=== PATIENT | male | born 1990 | race Two or more races ===

== ENCOUNTER 2024-08-17 07:27 | Emergency (ER) | payer MEDICAID, SELFPAY ==
[2024-08-17 07:28] VITALS: BMI 32.7
[2024-08-17 07:39] VITALS: BP 142/93; PULSE 64; RESP 18; TEMP 37.1; O2SAT 99; BMI 32.8
--- NOTE | 2024-08-17 07:55 | EDNOTE_ITS ---
<Statement entered by Naheed Iverson MD - 08/17/24 17:53> As co-signing physician, I was present and available for consult prn. I concur with the plan and care as documented by the midlevel provider. ED Back Injury Pain RME/HPI General Chief Complaint: Back Pain/Injury Stated Complaint: LOW BACK PAIN SINCE YESTERDAY Time Seen by Provider: 08/17/24 07:30 Arrival date/time: 08/17/24 07:27 34-year-old male presents emergency department complaints of lower back pain worse with movement patient reports he was working yesterday and pulled a heavy object which caused him to have pain in his lower to mid back. Patient reports no chest pain or shortness of breath no direct trauma Limitations: no limitations Related Data Previous Rx's ?Medication ?Instructions ?Recorded cyclobenzaprine 10 mg tablet 10 mg PO TID PRN muscle spasm 10 08/17/24 days #30 tab-caps ibuprofen 800 mg tablet 800 mg PO TID PRN pain #30 tabs 08/17/24 Allergies Allergy/AdvReac Type Severity Reaction Status Date / Time No Known Allergies Allergy Verified 08/17/24 07:31 Review of Systems Review of Systems Systems Reviewed: All systems reviewed, normal except as documented Constitutional Constitutional: Reports system reviewed and no additional complaints, except as documented, Denies fever(s) and Denies headache(s) Eyes Eyes: Reports system reviewed and no additional complaints, except as documented and Denies blurry vision ENT Ears, Nose, Mouth, and Throat: Reports system reviewed and no additional complaints, except as documented, Denies headache(s), Denies nasal congestion and Denies nasal discharge Cardiovascular Cardiovascular: Reports system reviewed and no additional complaints, except as documented, Denies chest pain and Denies dyspnea Respiratory Respiratory: Reports system reviewed and no additional complaints, except as documented, Denies chest congestion, Denies cough and Denies dyspnea Gastrointestinal Gastrointestinal: Reports system reviewed and no additional complaints, except as documented and Denies abdominal pain Musculoskeletal Musculoskeletal: Reports system reviewed and no additional complaints, except as documented, Reports back pain, Denies muscle weakness, Denies numbness, Reports radiating pain into limb, Reports stiffness and Denies tingling Integumentary/Breasts Skin/Breast: Reports system reviewed and no additional complaints, except as documented and Denies rash Neurologic Neurologic: Reports system reviewed and no additional complaints, except as documented, Reports as per HPI, Denies headache(s), Denies numbness and Denies tingling Past Medical History Past Medical History NEUROLOGIC: Negative Neurological Disorders CARDIAC: Negative Cardiac Disorders ED Exam General Limitations: Present no limitations General appearance: Present alert and in no apparent distress Head Head exam: Present atraumatic Eye Eye exam: Present normal appearance, PERRL and EOMI ENT ENT exam: Present normal exam, normal oropharynx and mucous membranes moist Neck Neck exam: Present normal inspection, full ROM and trachea midline Chest Chest inspection: Present normal inspection and symmetric chest wall rise Respiratory Respiratory exam: Present normal lung sounds bilaterally Cardiovascular Cardiovascular exam: Present regular rate, normal rhythm and normal heart sounds Abdominal Exam Abdominal exam: Present soft and normal bowel sounds; Absent distention, tenderness, guarding, rebound or rigidity Extremities Exam Extremities exam: Present normal inspection and full ROM Back Exam Back exam: Present normal inspection, full ROM, tenderness, muscle spasm and paraspinal tenderness; Absent CVA tenderness (R) or CVA tenderness (L) Neurological Exam Neurological exam: Present alert, oriented X3 and CN II-XII intact Psychiatric Psychiatric exam: Present normal affect and normal mood Skin Skin exam: Present warm, dry, intact and normal color Course Quality Measures none Orders Category Date Time Status Ketorolac Inj [Toradol Inj] Med 08/17/24 07:54 Discontinued 30 mg IM X1 ONE Vital Signs Vital signs: Vital Signs Temperature 98.8 F 08/17/24 07:39 Pulse Rate 64 08/17/24 07:39 Respiratory Rate 18 08/17/24 07:39 Blood Pressure 142/93 H 08/17/24 07:39 Pulse Oximetry (%) 99 08/17/24 07:39 Oxygen Delivery Method Room Air 08/17/24 07:39 O2 saturation 99% room air within normal limits Back Pain / Injury MDM Narrative MDM Narrative:: 34-year-old male presents emergency department complaints of lower back pain worse with movement patient reports he was working yesterday and pulled a heavy object which caused him to have pain in his lower to mid back. Patient reports no chest pain or shortness of breath no direct trauma On exam patient well-appearing patient does not appear ill or toxic patient does not appear in acute distress Symptoms consistent with muscle spasm, muscle strain patient given Toradol for pain discharged with a medication Patient discharged home in no distress to follow-up with primary care doctor in the next 24 to 48 hours and for any worsening symptoms to return to the ER immediately Patient data External records reviewed:: [facility] previous records Clinical information provided by:: patient Social determinants that could affect healthcare access:: none Patient has the following chronic illnesses:: None How is presenting disease/condition affected by chronic disease/condition?: no chronic disease Evaluation data The following diagnostics were reviewed and interpreted by me:: other (specify) (N/A) Lab and/or radiology exams considered but not ordered:: N/A Interpretation Summary: N/A Medications / Prescriptions Medications or Prescriptions considered but not ordered:: Given Medication administrations:: Medication Administration History Discontinued Medications Ketorolac Tromethamine (Ketorolac Inj 30 Mg/Ml Vial) 30 mg IM X1 ONE Stop: 08/17/24 07:55 Last Admin: 08/17/24 08:04 Dose: 30 mg Documented By: AC Given Consultations Consultation(s) initiated? (list below): No Diagnosis Differential diagnosis back pain/injury: lumbar radiculopathy, sciatica and strain of lumbar region Most likely diagnosis given after review of the tests above:: Muscle strain Admission Indicated Admission indicated?: not indicated Admission Request Was there a request for admission?: No Disposition Plan Disposition Plan: Discharge Discharge Attestation Discharge Attestation: The patient and all family members were given an opportunity to ask questions and understood the discharge instructions. Discharge instructions specifically effects, indications for sooner follow up or return to the emergency department, and the expected course of current diagnosis. Patient condition: Stable Discharge Plan Plan Patient Disposition: HOME (Self Care) Disposition Comment: stable Prescriptions/Referrals Prescriptions/Med Rec: New cyclobenzaprine 10 mg tablet 10 mg PO TID PRN (Reason: muscle spasm) 10 Days Qty: 30 0RF ibuprofen 800 mg tablet 800 mg PO TID PRN (Reason: pain) Qty: 30 0RF Problem List Clinical Impression: Strain of lumbar region Patient/Caregiver Discharge Instructions Education Materials: ED Back Sprain/Strain Additional Instructions: Please follow up with your primary care doctor in the next 24-48hrs for any worsening symptoms return here immediately Print Language: Nauruan Stand Alone Forms: [place] Award Info., Work/School Release, Patient Portal Info Letter ANDREY/ANNI Supervising Physician ANDREY/ANNI Supervising Physician: dr iverson
[2024-08-17] MEDS: KETOROLAC INJ 30 MG/ML VIAL IM (08:04)
== END 2024-08-17 08:17 | disposition home or self-care (01) ==
PROVIDERS: Emergency Provider Emergency Medicine
DX: S39.012A Strain of muscle, fascia and tendon of lower back, initial encounter (principal); X50.0XXA Overexertion from strenuous movement or load, initial encounter; Y99.0 Civilian activity done for income or pay
CPT/HCPCS: 96372; 99283; J1885